=== PATIENT | male | born 1955 | race Caucasian/White ===

== ENCOUNTER 2022-05-11 13:29 | Emergency (ER) | payer MEDICARE, SELFPAY ==
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
[2022-05-11 13:33] VITALS: BP 169/101; PULSE 84; RESP 16; TEMP 36.5; O2SAT 97
[2022-05-11 13:35] VITALS: BP 168/101; PULSE 100; RESP 18; TEMP 36.4; O2SAT 96
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
[2022-05-11] MEDS: ACETAMINOPHEN 500 MG TABLET 1000 MG PO (14:30)
[2022-05-11 15:16] VITALS: BP 181/94; PULSE 96; RESP 17; O2SAT 94
[2022-05-11 15:39] VITALS: BP 167/99; PULSE 91; RESP 16; TEMP 36.6; O2SAT 97
== END 2022-05-11 15:45 | disposition short-term general hospital (02) ==
PROVIDERS: Emergency Provider Emergency Medicine; PCP Internal Medicine
DX: M54.9 Dorsalgia, unspecified (principal); S22.009A Unspecified fracture of unspecified thoracic vertebra, initial encounter for closed fracture; W18.30XA Fall on same level, unspecified, initial encounter
CPT/HCPCS: 71101; 72128; 72131; 99284; 99285